=== PATIENT | male | born 1970 | race Caucasian/White ===

== ENCOUNTER 2017-11-23 23:39 | Emergency (ER) | payer BC ==
[2017-11-24 00:07] VITALS: O2SAT 98
[2017-11-24] MEDS ORDERED: Sodium Chloride 0.9% 1000 ML 1,000 ML IV STA (00:17)
[2017-11-24] MEDS ORDERED: Zosyn INJ 4.5 GM in D5w 100ML Mini Bag 100 ML 100 ML IV ONE (00:18)
--- NOTE | 2017-11-24 00:24 | ERPHSYRPT ---
- History of Present Illness Time Seen by Provider: 11/24/17 00:13 Historian: patient Exam Limitations: clinical condition Patient Subjective Stated Complaint: redness around belly button x 24 hours. sore to touch and when bending. states feels hard around belly button. last meal @ 1600 today and drank a Coke approx 1 hour [employer] Triage Nursing Assessment: alert and oriented. noted redness around belly button. small outpiuching noted to umbilical area.. states been like that for 3 -4 years.. hard on palpation and sore to touch. denies urinary sx and bowel problems. denies fever. states did exert himelf past . Physician History: PATIENT WITH HISTORY OF UMBILICAL HERNIA FOR 2 YEARS COMPLAINS OF UMBILICAL PAIN ,FIRM UNABLE TO REDUCE SWELLING THIS MORNING WITH PROGRESSIVE PAIN AND REDNESS OVER HERNIA THROUGHOUT THE DAY. DENIES FEVER, NAUSEA, EMESIS OR DIARRHEA. Timing/Duration: today Activities at Onset: none Quality: throbbing Abdominal Pain Onset Location: periumbilical Pain Radiation: no radiation Severity of Pain-Max: moderate Severity of Pain-Current: moderate Modifying Factors: Improves With: movement Associated Symptoms: other (PAIN) Previous symptoms: same symptoms as today Allergies/Adverse Reactions: No Known Drug Allergies Allergy (Unverified 11/24/17 00:20) Home Medications: Omeprazole Magnesium [Prilosec Otc] 20 mg PO DAILY 11/24/17 [History] Hx Influenza Vaccination/Date Given: No Immunizations Up to Date: No - Review of Systems Constitutional: No Fever, No Chills Eyes: No Symptoms Ears, Nose, & Throat: No Symptoms Respiratory: No Cough, No Dyspnea Cardiac: No Chest Pain, No Edema, No Syncope Abdominal/Gastrointestinal: Abdominal Pain, Other (HERNIA), No Nausea, No Vomiting, No Diarrhea Genitourinary Symptoms: No Dysuria Musculoskeletal: No Back Pain, No Neck Pain Skin: No Rash Neurological: No Dizziness, No Focal Weakness, No Sensory Changes Psychological: No Symptoms Endocrine: No Symptoms All Other Systems: Reviewed and Negative - Past Medical History Pertinent Past Medical History: Yes GI Medical History: GERD - Social History Smoking Status: Never smoker Drug Use: none Patient Lives Alone: No - Nursing Vital Signs Nursing Vital Signs: Initial Vital Signs Temperature 98.3 F 11/23/17 23:59 Pulse Rate 74 11/23/17 23:59 Respiratory Rate 16 11/23/17 23:59 Blood Pressure 139/86 11/23/17 23:59 O2 Sat by Pulse Oximetry 98 11/23/17 23:59 Pain Scale Pain Intensity 0 - Physical Exam General Appearance: no apparent distress, alert Eye Exam: PERRL/EOMI, eyes nml inspection Ears, Nose, Throat Exam: normal ENT inspection, pharynx normal, moist mucous membranes Neck Exam: normal inspection, non-tender, supple, full range of motion Respiratory Exam: normal breath sounds, lungs clear, No respiratory distress Cardiovascular Exam: regular rate/rhythm, normal heart sounds Gastrointestinal/Abdomen Exam: soft, normal bowel sounds, tenderness (FIRM UMBILICAL HERNIA UNABLE TO REDUCE WITH SURROUNDING ERYTHEMA WITH WARMTH), No mass Back Exam: normal inspection, normal range of motion, No CVA tenderness, No vertebral tenderness Extremity Exam: normal inspection, normal range of motion, pelvis stable Neurologic Exam: alert, oriented x 3, cooperative, normal mood/affect, nml cerebellar function, sensation nml, No motor deficits Skin Exam: normal color, warm, dry SpO2: 98 Oxygen Delivery: Room Air - CT Exams Abdomen/Pelvis CT Interpretation: Tele-radiologist Report (INFLAMED FAT CONTAINING PERIUMBILICAL HERNIA. CORRELATE IF REDUCIBLE, OTHERWISE LIKELY AN INCARCERATED FAT ) Ordered Tests: Active Orders 24 hr Category Date Time Status ABDOMEN AND PELVIS W CONTRAST [CT] Stat Exams 11/24/17 00:16 Taken AMYLASE Stat Lab 11/24/17 00:30 Completed BLOOD CULTURE Stat Lab 11/24/17 01:00 Received BMP Stat Lab 11/24/17 00:30 Completed CBC W DIFF Stat Lab 11/24/17 00:30 Completed LIPASE Stat Lab 11/24/17 00:30 Completed PT INR [PROTIME WITH INR] Stat Lab 11/24/17 00:30 Completed UA W/RFX UR CULTURE Stat Lab 11/24/17 00:30 Completed Medication Summary Discontinued Medications Generic Name Dose Route Start Last Admin Trade Name Freq PRN Reason Stop Dose Admin Sodium Chloride 1,000 mls @ 999 mls/hr 11/24/17 00:17 11/24/17 00:44 Sodium Chloride 0.9% 1000 Ml IV 11/24/17 01:17 999 mls/hr .Q1H1M STA Administration Piperacillin Sod/Tazobactam 100 mls @ 200 mls/hr 11/24/17 00:18 11/24/17 00: 45 Sod 4.5 gm/ Dextrose IV 11/24/17 00:47 200 mls/hr STAT ONE Administration Sodium Chloride Confirm 11/24/17 00:34 Sodium Chloride 0.9% 1000 Ml Administered 11/24/17 00:35 Dose 1,000 mls @ ud .ROUTE .STK-MED ONE Dextrose Confirm 11/24/17 00:34 D5w 100ml Mini Bag 100 Ml Administered 11/24/17 00:35 Dose 100 mls @ ud IV .STK-MED ONE Piperacillin Sod/Tazobactam Sod Confirm 11/24/17 00:33 Zosyn Inj Administered 11/24/17 00:34 Dose 4.5 gm IV .STK-MED ONE Lab/Rad Data: Laboratory Result Diagrams 11/24/17 00:30 11/24/17 00:30 Laboratory Results 11/24/17 11/24/17 11/24/17 Range/Units 00:30 00:30 00:30 WBC (4.0-10.5) K/mm3 RBC (4.1-5.6) M/mm3 Hgb (12.5-18.0) gm/dl Hct (42-50) % MCV (78-100) fl MCH (26-32) pg MCHC (32-36) g/dl RDW (11.5-14.0) % Plt Count (150-450) K/mm3 MPV (6-9.5) fl Gran % (36.0-66.0) % Lymphocytes % (24.0-44.0) % Monocytes % (0.0-12.0) % Eosinophils % (0.00-5.0) % Basophils % (0.0-0.4) % Basophils # (0-0.4) INR 1.09 (0.8-3.0) Sodium 138 (136-145) mEq/L Potassium 4.0 (3.5-5.1) mEq/L Chloride 103 (98-107) mEq/L Carbon Dioxide 26.4 (21-32) mEq/L Anion Gap 12.8 (5-15) MEQ/L BUN 20 (9-20) mg/dL Creatinine 1.34 H (0.55-1.30) mg/dl Estimated GFR > 60 ML/MIN Glucose 96 (70-110) MG/DL Calcium 9.0 (8.5-10.1) mg/dL Amylase 53 (25-115) U/L Lipase 155 (73-393) U/L Ur Collection Type CLEAN CATCH Urine Color YELLOW (YELLOW) Urine Appearance CLEAR (CLEAR) Urine pH 5.0 (5-6) Ur Specific [place] 1.020 (1.005-1.025) Urine Protein NEGATIVE (Negative) Urine Ketones NEGATIVE (NEGATIVE) Urine Blood NEGATIVE (0-5) Boris/ul Urine Nitrite NEGATIVE (NEGATIVE) Urine Bilirubin NEGATIVE (NEGATIVE) Urine Urobilinogen NORMAL (0-1) mg/dL Ur Leukocyte Esterase NEGATIVE (NEGATIVE) Urine Culture Reflexed NO (NO) Urine Glucose NEGATIVE (NEGATIVE) mg/dL Specimen Received 11/24/17 0130 11/24/17 Range/Units 00:30 WBC 12.0 H (4.0-10.5) K/mm3 RBC 5.08 (4.1-5.6) M/mm3 Hgb 15.3 (12.5-18.0) gm/dl Hct 44.6 (42-50) % MCV 87.8 (78-100) fl MCH 30.1 (26-32) pg MCHC 34.3 (32-36) g/dl RDW 13.0 (11.5-14.0) % Plt Count 234 (150-450) K/mm3 MPV 11.3 H (6-9.5) fl Gran % 59.3 (36.0-66.0) % Lymphocytes % 28.3 (24.0-44.0) % Monocytes % 9.7 (0.0-12.0) % Eosinophils % 2.4 (0.00-5.0) % Basophils % 0.3 (0.0-0.4) % Basophils # 0.03 (0-0.4) INR (0.8-3.0) Sodium (136-145) mEq/L Potassium (3.5-5.1) mEq/L Chloride (98-107) mEq/L Carbon Dioxide (21-32) mEq/L Anion Gap (5-15) MEQ/L BUN (9-20) mg/dL Creatinine (0.55-1.30) mg/dl Estimated GFR ML/MIN Glucose (70-110) MG/DL Calcium (8.5-10.1) mg/dL Amylase (25-115) U/L Lipase (73-393) U/L Ur Collection Type Urine Color (YELLOW) Urine Appearance (CLEAR) Urine pH (5-6) Ur Specific [place] (1.005-1.025) Urine Protein (Negative) Urine Ketones (NEGATIVE) Urine Blood (0-5) Boris/ul Urine Nitrite (NEGATIVE) Urine Bilirubin (NEGATIVE) Urine Urobilinogen (0-1) mg/dL Ur Leukocyte Esterase (NEGATIVE) Urine Culture Reflexed (NO) Urine Glucose (NEGATIVE) mg/dL Specimen Received - Progress Progress: improved Progress Note: 11/24/17 00:24 IV NORMAL SALINE 1LITER/HR, Discussed with : Genie (DISCUSSED WITH DR Jam PUTNAM AT 0250 FOR OFFICE FOLLOWUP TOMORROW) Counseled pt/family regarding: lab results, diagnosis, need for follow-up - Departure Time of Disposition: 03:15 Departure Disposition: Home Clinical Impression: INCARCERATED FAT UMBILICAL HERNIA Condition: Stable Critical Care Time: No Referrals: DOCTOR,NO FAMILY [Primary Care Provider] - Additional Instructions: CALL DR KAROLINE PUTNAM OFFICE TOMORROW AT 8AM, , FOR APPOINTMENT OF FAT CONTAINING UMBILICAL HERNIA. NORCO 10/325 EVERY 4 HOURS FOR PAIN NEEDED. ANTIBIOTIC AUGMENTIN 875MG TWICE DAILY FOR 10 DAYS. AVOID EATING OR DRINKING AFTER 3AM SATURDAY MORNING. Prescriptions: Hydrocodone/APAP 10/325 mg [[place] 10/325 MG Tablet] 1 tab PO Q6H PRN PRN # 15 tablet MDD 5 PRN Reason: Pain Amox Tr/Potass Clav. 875 mg [Augmentin 875-125 Tablet] 875 mg PO BID #20 tablet
[2017-11-24] MEDS ORDERED: Zosyn INJ IV ONE (00:33)
[2017-11-24] MEDS ORDERED: Sodium Chloride 0.9% 1000 ML 1,000 ML ONE (00:34)
[2017-11-24] MEDS ORDERED: D5w 100ML Mini Bag 100 ML 100 ML IV ONE (00:34)
[2017-11-24 01:20] LABS: BASOPHIL % 0.3 % (0.0-0.4); Basophil (Absolute #) 0.03 (0-0.4); Eosinophil % 2.4 % (0.00-5.0); Eosinophil (Absolute #) 0.29 (0-0.5); Granulocyte Absolute (ANC) 7.12 (1.4-6.9); Granulocytes % 59.3 % (36.0-66.0); Hematocrit 44.6 % (42-50); Hemoglobin 15.3 gm/dl (12.5-18.0); Lymphocyte (Absolute #) 3.39 (1.0-4.6); Lymphocytes % 28.3 % (24.0-44.0); Mean Cell Volume 87.8 fl (78-100); Mean Corpuscular Hemoglobin 30.1 pg (26-32); Mean Corpuscular Hgb Concent. 34.3 g/dl (32-36); Mean Platelet Volume 11.3 fl (6-9.5); Monocyte (Absolute #) 1.16 (0.0-1.3); Monocytes % 9.7 % (0.0-12.0); Platelet Count 234 K/mm3 (150-450); Red Blood Count 5.08 M/mm3 (4.1-5.6)
[2017-11-24 01:37] LABS: INR 1.09 (0.8-3.0)
[2017-11-24 01:41] LABS: AMYLASE 53 U/L (25-115); ANION GAP 12.8 MEQ/L (5-15); BLOOD UREA NITROGEN 20 mg/dL (9-20); CHLORIDE 103 mEq/L (98-107); Carbon Dioxide 26.4 mEq/L (21-32); Creatinine 1 1.34 mg/dl (0.55-1.30); EST GLOMERULAR FILTRATION RATE > 60 ML/MIN; Glucose 96 MG/DL (70-110); LIPASE 155 U/L (73-393); SODIUM 138 mEq/L (136-145)
[2017-11-24 02:13] LABS: Appearance CLEAR (CLEAR)
[2017-11-24 02:14] LABS: Bilirubin NEGATIVE (NEGATIVE); Blood NEGATIVE Ery/ul (0-5); Glucose NEGATIVE (NEGATIVE); Ketones NEGATIVE (NEGATIVE); Leukocyte Esterase NEGATIVE (NEGATIVE); Nitrite NEGATIVE (NEGATIVE); Protein,Urine Dip NEGATIVE (Negative); Urobilinogen NORMAL mg/dL (0-1)
[2017-11-24 03:25] VITALS: BP 137/94; PULSE 80
--- NOTE | 2017-11-24 08:54 | XRAY ---
Indication: Periumbilical pain. Multiple contiguous axial images obtained through the abdomen and pelvis using 80 cc Isovue 370 contrast only. Comparison: None. Lung bases demonstrates minimal bibasilar atelectasis/scarring. Heart is not enlarged. Small hiatal hernia. Moderate sized periumbilical fatty hernia with induration suggesting underlying inflammation/infection. No suspicious fluid/air collection. Noncontrasted stomach and bowel loops appear nonobstructed. Normal appendix. Mild scattered colonic diverticulosis without diverticulitis. Also mild diffuse scattered colonic fecal debris throughout. No free fluid/air. Diffuse fatty liver and nonobstructing 1 m left renal calculus. Remaining liver, gallbladder, pancreas, spleen, adrenal glands, kidneys, ureters, bladder, and aorta appear unremarkable. No pathologic retroperitoneal lymphadenopathy. Osseous structures intact with mild degenerative changes of the lower lumbar spine. Impression: 1. Fatty umbilical hernia with induration favoring underlying inflammation/infection. 2. Colonic diverticulosis without diverticulitis and fecal stasis without obstruction. 3. Incidental fatty liver and nonobstructing left renal calculus. Comment: Preliminary interpretation was made by [facility]. No discrepancy. CTDI 23.68
== END 2017-11-24 03:45 | disposition home or self-care (01) ==
LOC: ED 23:39
DX: K42.0 Umbilical hernia with obstruction, without gangrene (principal)
CPT/HCPCS: 36000; 36415; 74177; 80048; 81002; 82150; 83690; 85025; 85610; 87040; 96360; 96365; 99283; 99284; J2543

== ENCOUNTER 2023-04-06 04:57 | Emergency (ER) | payer BC ==
--- NOTE | 2023-04-06 05:01 | ERPHSYRPT ---
- History of Present Illness Time Seen by Provider: 04/06/23 05:01 Source: patient Exam Limitations: no limitations Physician History: This is an obese 53-year-old white male patient who woke up at approximately 4 AM and felt a dryness and gagging. He thought his uvula was stuck to the roof of his mouth. Patient denies stridor. He denies wheezing and has no respiratory compromise. Patient does drink alcohol daily and his last consumption of alcohol was at midnight this past midnight. Patient denies chest pain and denies shortness of breath. He has had no abdominal pain no nausea vomiting or diarrhea. He does have pain in the back of his throat. The patient does snore. Timing/Duration: today Cough Quality/Degree: no cough Possible Cause: occasional episodes Associated Symptoms: nasal congestion, sore throat Allergies/Adverse Reactions: No Known Drug Allergies Allergy (Verified 04/06/23 05:09) Home Medications: Omeprazole Magnesium [Prilosec Otc] 20 mg PO DAILY 11/24/17 [History] Hx Influenza Vaccination/Date Given: No Travel Risk - International Travel Have you traveled outside of the country in past 3 weeks: No - Coronavirus Screening Are you exhibiting any of the following symptoms?: No Close contact with a COVID-19 positive Pt in past 14-21 Days: No - Review of Systems Constitutional: No Symptoms Eyes: No Symptoms Ears, Nose, & Throat: Throat Pain, Painful Swallowing (In the pharynx area) Respiratory: No Symptoms Cardiac: No Symptoms Abdominal/Gastrointestinal: No Symptoms Genitourinary Symptoms: No Symptoms Musculoskeletal: No Symptoms Skin: No Symptoms Neurological: No Symptoms Psychological: No Symptoms Endocrine: No Symptoms Hematologic/Lymphatic: No Symptoms Immunological/Allergic: No Symptoms All Other Systems: Reviewed and Negative - Past Medical History Pertinent Past Medical History: Yes GI Medical History: GERD - Social History Smoking Status: Never smoker Drug Use: none Patient Lives Alone: No - Nursing Vital Signs Nursing Vital Signs: Initial Vital Signs Temperature 98.1 F 04/06/23 05:10 Pulse Rate 99 H 04/06/23 05:10 Respiratory Rate 16 04/06/23 05:10 Blood Pressure 155/104 04/06/23 05:10 O2 Sat by Pulse Oximetry 93 L 04/06/23 05:10 Pain Scale Pain Intensity 0 - Physical Exam General Appearance: no apparent distress, alert, anxiety, obese Eye Exam: PERRL/EOMI, eyes nml inspection Ears, Nose, Throat Exam: moist mucous membranes, pharyngeal erythema, other (Patient has an enlarged, inflamed uvula that is midline.) Neck Exam: normal inspection, non-tender, supple, full range of motion Respiratory Exam: normal breath sounds, lungs clear, airway intact, No chest tenderness, No respiratory distress Cardiovascular Exam: regular rate/rhythm, normal heart sounds, normal peripheral pulses Gastrointestinal/Abdomen Exam: No tenderness Rectal Exam: not done Back Exam: normal inspection, normal range of motion, No CVA tenderness, No vertebral tenderness Extremity Exam: normal inspection, normal range of motion, pelvis stable Neurologic Exam: alert, oriented x 3, cooperative, buffing turner and counter II-XII nml as tested, normal mood/affect, nml cerebellar function, nml station & gait, sensation nml Skin Exam: normal color, warm, dry Lymphatic Exam: adenopathy SpO2 Interpretation: normal O2 Delivery: Room Air - Course Nursing assessment & vital signs reviewed: Yes Ordered Tests: Medication Summary Discontinued Medications Generic Name Dose Route Start Last Admin Trade Name Brenda PRN Reason Stop Dose Admin Hydrocodone Bitart/Acetaminophen 10 ml 04/06/23 05:51 Hydrocodone/Acetaminophen 5 Ml Udcup PO 04/06/23 05:52 STAT STA Hydrocodone Bitart/Acetaminophen Confirm 04/06/23 05:57 Hydrocodone/Acetaminophen 5 Ml Udcup Administered 04/06/23 05:58 Dose 10 ml .ROUTE .STK-MED ONE Ceftriaxone Sodium 1,000 mg 04/06/23 05:51 Ceftriaxone Sodium 1000 Mg Inj Vial IM 04/06/23 05:52 STAT ONE Ceftriaxone Sodium Confirm 04/06/23 05:57 Ceftriaxone Sodium 1000 Mg Inj Vial Administered 04/06/23 05:58 Dose 1,000 mg .ROUTE .STK-MED ONE Methylprednisolone Sodium 0 mg 04/06/23 05:51 Succinate 125 mg/ Sterile IM 04/06/23 05:52 Water 2 ml STAT ONE Methylprednisolone Sodium Succinate Confirm 04/06/23 05:57 Methylprednis Sod Succ 125 Mg/2 Ml Vial Administered 04/06/23 05:58 Dose 125 mg .ROUTE .STK-MED ONE Sterile Water Confirm 04/06/23 05:57 Water For Injection,Sterile 10 Ml Vial Administered 04/06/23 05:58 Dose 10 ml IJ .STK-MED ONE - Progress Progress: improved Air Movement: good Progress Note: 04/06/23 06:03 This patient's medical issue is 1 of low complexity. The level of complexity and the work-up performed is based on review of the patient's past medical history and review of the patient's medication list, review of the patient's drug allergy list, history present illness and findings on physical examination. This patient will not require lab or radiographic studies. Patient has uvulitis. We will provide him with an injection of Rocephin 1 g intramuscularly as well as 125 mg intramuscularly of Solu-Medrol and 10 mL of hydrocodone/acetaminophen cough medicine. We will then send prescription for Z- Alexi, prednisone 10 mg and hydrocortisone acetaminophen elixir to his pharmacy remotely. Blood Culture(s) Obtained: No Antibiotics given: Yes Counseled pt/family regarding: diagnosis, need for follow-up Medical Desision Making - Independent Historian Additional History obtained from: Child - Diagnostic Testing Diagnostic test were ordered, analyzed, and reviewed by me: No - Risk of complications The pt has a mod risk of morbidity or mortality based on: Need for prescription drug management - Departure Departure Disposition: Home Clinical Impression: Uvulitis Condition: Stable Critical Care Time: No Referrals: DOCTOR,NO FAMILY [Primary Care Provider] - Follow up/PCP as directed Additional Instructions: Drink plenty of cool/cold liquids. Take your steroids and antibiotics as prescribed. Follow-up with your prescribing provider on 04/08/2023 for further evaluation management. Return to the emergency department if symptoms worsen. Prescriptions: Hydrocodone/Acetaminophen [Hydrocodone-Acetamn 7.5-325/15] 10 ml PO Q8H PRN PRN #120 ml MDD 30 ml PRN Reason: Cough Prednisone 10 mg [Deltasone 10 mg] 10 mg PO TID #12 tablet Azithromycin 250 mg [Zithromax 250 MG TABLET] 250 mg PO ZPACK #6 tablet
[2023-04-06] MEDS ORDERED: HYDROCODONE-ACETAMIN 2.5-108/5 ML SOLUTION PO STA (05:51)
[2023-04-06] MEDS ORDERED: solu-MEDROL 125 MG, Sterile H2O 10 ml 2 ML IM ONE ×2 (05:51)
[2023-04-06] MEDS ORDERED: Rocephin 1000 MG INJ IM ONE (05:51)
[2023-04-06] MEDS ORDERED: Sterile H2O 10 ml IJ ONE (05:57)
[2023-04-06] MEDS ORDERED: Rocephin 1000 MG INJ ONE (05:57)
[2023-04-06] MEDS ORDERED: solu-MEDROL ONE (05:57)
[2023-04-06] MEDS ORDERED: HYDROCODONE-ACETAMIN 2.5-108/5 ML SOLUTION ONE (05:57)
[2023-04-06 06:11] VITALS: BP 148/101; PULSE 90; O2SAT 98
== END 2023-04-06 06:21 | disposition home or self-care (01) ==
LOC: ED 04:57
DX: K12.2 Cellulitis and abscess of mouth (principal); J02.9 Acute pharyngitis, unspecified; Z79.891 Long term (current) use of opiate analgesic; Z79.52 Long term (current) use of systemic steroids
CPT/HCPCS: 96372; 99283; J0696; J2930; A9270-GY